=== PATIENT | male | born 1955 | race Caucasian/White ===

== ENCOUNTER 2020-03-04 20:08 | Inpatient (IN) | payer OTHER ==
[~2020-03-04] VITALS: Ht 172.7 cm; Wt 104.3 kg
[2020-03-04 20:10] VITALS: Ht 172.7 cm; Wt 104.3 kg
[2020-03-04 21:17] LABS: BASOPHIL % 0.5 % (0.2-1.5); PLATELET COUNT 202 x10^3mcL (152-348)
[2020-03-04 21:19] LABS: RED CELL DISTRIBUTION WIDTH 14.7 % (12.1-16.2)
[2020-03-04 21:45] LABS: CALCIUM 9.1 mg/dL (8.5-10.1); CARBON DIOXIDE 26.5 mmol/L (21-32); CHLORIDE SERUM 105 mmol/L (98-107); CREATININE SERUM 0.9 mg/dL (0.7-1.3); GFR1 > 60 mL/min; GLUCOSE SERUM 199 mg/dL (74-106); POTASSIUM SERUM 3.7 mmol/L (3.5-5.1); SODIUM SERUM 142 mmol/L (136-145)
[2020-03-04 21:50] LABS: ALBUMIN 3.8 g/dL (3.4-5.0); ALKALINE PHOSPHATASE 56 U/L (46-116); ALT/SGPT 55 U/L (16-63); AST/SGOT 28 U/L (15-37); BILIRUBIN TOTAL 0.62 mg/dL (0.20-1.00); C REACTIVE PROTEIN 1.5 mg/dL (<=0.9); LACTIC DEHYDROGENASE (LDH) 344 U/L (100-190); TOTAL PROTEIN, SERUM 7.8 g/dL (6.4-8.2)
[2020-03-05] MEDS ORDERED: AMLODIPINE BESYL5 M2 PO (00:37)
[2020-03-05] MEDS ORDERED: LOSARTAN POTAS100 M1 PO ×2 (00:37→02:12)
[2020-03-05] MEDS ORDERED: TRULICITY0.75 MG/0. SC (02:11)
[2020-03-05] MEDS ORDERED: FARXIGA10 MG PO (02:12)
[2020-03-05] MEDS ORDERED: AMLODIPINE BESY1 T14 PO (02:13)
[2020-03-05] MEDS ORDERED: BELSOMRA5 MG (02:14)
[2020-03-05] MEDS ORDERED: PROAIR HFA8.5 GM IH (02:15)
[2020-03-05 03:06] LABS: microscopic required? NO
[2020-03-05 03:37] LABS: UA SPECIFIC GRAVITY 1.025 (1.005-1.035); urine erythrocyte NEGATIVE (NEGATIVE)
[2020-03-05 03:50] LABS: AMPHETAMINE QUAL UR NONE DETECTED (See below)
[2020-03-05 05:46] VITALS: BP 131/89
[2020-03-05 09:56] LABS: T3 TOTAL 1.19 ng/mL
[2020-03-05 10:20] LABS: BASOPHIL % 0.1 % (0.2-1.5); PLATELET COUNT 194 x10^3mcL (152-348); RED CELL DISTRIBUTION WIDTH 14.5 % (12.1-16.2)
[2020-03-05 10:55] LABS: FREE T4 1.08 ng/dL (0.76-1.46); FREE THYROXINE INDEX 3.2 ug/dL (1.4-4.5); T4(THYROXINE) 9.8 ug/dL (4.7-13.3)
[2020-03-05 16:02] VITALS: BP 112/74
[2020-03-06 05:17] VITALS: BP 105/69
[2020-03-06 08:17] LABS: BASOPHIL % 0.2 % (0.2-1.5); PLATELET COUNT 213 x10^3mcL (152-348); RED CELL DISTRIBUTION WIDTH 14.5 % (12.1-16.2)
[2020-03-06 08:49] VITALS: BP 113/74
[2020-03-06 08:51] LABS: MAGNESIUM 2.3 mg/dL (1.8-2.4); PHOSPHOROUS 3.6 mg/dL (2.5-4.9)
[2020-03-06 08:55] VITALS: BP 116/75
[2020-03-06 13:01] VITALS: BP 105/72
[2020-03-06 16:41] VITALS: BP 115/77
[2020-03-06 21:16] VITALS: BP 108/71
[2020-03-07 05:53] VITALS: BP 111/78
[2020-03-07 07:07] LABS: BASOPHIL % 0.3 % (0.2-1.5); PLATELET COUNT 203 x10^3mcL (152-348)
[2020-03-07 07:23] LABS: CALCIUM 8.9 mg/dL (8.5-10.1); CARBON DIOXIDE 29.8 mmol/L (21-32); CHLORIDE SERUM 103 mmol/L (98-107); CREATININE SERUM 0.8 mg/dL (0.7-1.3); GFR1 > 60 mL/min; GLUCOSE SERUM 127 mg/dL (74-106); POTASSIUM SERUM 4.4 mmol/L (3.5-5.1); SODIUM SERUM 140 mmol/L (136-145)
[2020-03-07 07:29] LABS: CHOLESTEROL/HDL RATIO 3.9; RED CELL DISTRIBUTION WIDTH 14.7 % (12.1-16.2)
[2020-03-07 08:51] VITALS: BP 116/78
[2020-03-07 10:26] LABS: MAGNESIUM 2.5 mg/dL (1.8-2.4); PHOSPHOROUS 4.3 mg/dL (2.5-4.9)
[2020-03-07 12:12] VITALS: BP 111/81
[2020-03-07 16:42] VITALS: BP 110/81
[2020-03-07 20:29] VITALS: BP 113/67
[2020-03-08 04:50] VITALS: BP 115/71
[2020-03-08 07:41] LABS: BASOPHIL % 0.3 % (0.2-1.5); PLATELET COUNT 188 x10^3mcL (152-348)
[2020-03-08 08:01] LABS: RED CELL DISTRIBUTION WIDTH 14.8 % (12.1-16.2)
[2020-03-08 08:02] LABS: CALCIUM 8.9 mg/dL (8.5-10.1); CARBON DIOXIDE 29.5 mmol/L (21-32); CHLORIDE SERUM 103 mmol/L (98-107); CREATININE SERUM 0.7 mg/dL (0.7-1.3); GFR1 > 60 mL/min; GLUCOSE SERUM 109 mg/dL (74-106); SODIUM SERUM 138 mmol/L (136-145)
[2020-03-08 08:08] LABS: BILIRUBIN DIRECT 0.19 mg/dL (0.0-0.2); BILIRUBIN TOTAL 0.64 mg/dL (0.20-1.00); TOTAL PROTEIN, SERUM 6.9 g/dL (6.4-8.2)
[2020-03-08 08:32] LABS: ALBUMIN 3.3 g/dL (3.4-5.0)
[2020-03-08 09:00] VITALS: BP 122/74
[2020-03-08] MEDS ORDERED: VENTOLIN H0.09 MG/A1 INH (12:01)
[2020-03-08] MEDS ORDERED: ATORVASTATIN CA40 M1 PO (12:03)
[2020-03-08] MEDS ORDERED: METOPROLOL TART25 M1 PO (12:04)
[2020-03-08] MEDS ORDERED: NOR5 PO (12:04)
[2020-03-08] MEDS ORDERED: COZ50 PO (12:05)
[2020-03-08] MEDS ORDERED: ECO81 PO (12:06)
[2020-03-08] MEDS ORDERED: MUCINEX600 MG PO (12:07)
[2020-03-08 12:10] VITALS: BP 106/75
[2020-03-08] MEDS ORDERED: ELIQUIS2.5 MG PO (12:21)
[2020-03-08] MEDS ORDERED: LASIX20 MG PO (12:23)
[2020-03-08] MEDS ORDERED: DEC4I IV (12:23)
[2020-03-08 12:46] VITALS: BP 106/75
[2020-03-08] MEDS ORDERED: DECADRON6 MG PO (13:09)
== END 2020-03-08 14:47 | disposition home or self-care (01) | DRG 871 ==
LOC: ED 20:08 → DU 03-05 00:32
PROVIDERS: Emergency Medicine; Internal Medicine Cardiovascular Disease; ADMIT Family Medicine; ATTEND Family Medicine
PROC: XW033E5 Introduction of Remdesivir Anti-infective into Peripheral Vein, Percutaneous Approach, New Technology Group 5 (ICD-10-PCS; principal; 2020-03-07)
DX: A41.89 Other specified sepsis (principal); U07.1 COVID-19; J12.89 Other viral pneumonia; J96.01 Acute respiratory failure with hypoxia; I21.A1 Myocardial infarction type 2; E11.9 Type 2 diabetes mellitus without complications; B19.20 Unspecified viral hepatitis C without hepatic coma; I11.0 Hypertensive heart disease with heart failure; I50.9 Heart failure, unspecified; Z87.891 Personal history of nicotine dependence
CPT/HCPCS: 36600; 82962; 83880; 84439; 85378; 87804; G0378; J0456; J0696; J1100; J1644; J1650; J1815; J1940; J3535; J7030; J7050; J7060; U0003